=== PATIENT | female | born 1960 | race Hispanic/Latino ===

== ENCOUNTER 2023-03-05 08:55 | Outpatient (RCR) | payer BC | END 2023-03-06 | LOC: PT 08:55 | PROVIDERS: ATTEND Physician Assistant | DX: Z47.89 Encounter for other orthopedic aftercare (principal); S42.209A Unspecified fracture of upper end of unspecified humerus, initial encounter for closed fracture ==

== ENCOUNTER 2023-03-23 09:56 | Outpatient (RCR) | payer BC | END 2023-04-05 | LOC: PT 09:56 | PROVIDERS: ATTEND Physician Assistant | DX: Z47.89 Encounter for other orthopedic aftercare (principal); S42.209D Unspecified fracture of upper end of unspecified humerus, subsequent encounter for fracture with routine healing; M62.81 Muscle weakness (generalized); M25.511 Pain in right shoulder; M25.611 Stiffness of right shoulder, not elsewhere classified ==